=== PATIENT | male | born 1980 | race Two or more races ===

== ENCOUNTER 2021-01-08 08:36 | Outpatient (REF) | payer OTHER, SELFPAY ==
--- NOTE | ~2021-01-08 | XR_ITS ---
EXAMINATION: XR LUMBOSACRAL SPINE CLINICAL INFORMATION: Dorsalgia COMPARISON: None TECHNIQUE: Three views of the lumbosacral spine. FINDINGS: The vertebral bodies and posterior elements are normal. The disc spaces are preserved and the vertebral alignment is normal. The paraspinal soft tissues are normal. XR/XR lumbar spine 2-3V IMPRESSION: Unremarkable examination.
[2021-01-08 10:09] LABS: MANUAL DIFF FLAG NO
[2021-01-08 10:20] LABS: Basophils Percent Auto 0.6 % (0-2); Eosinophils Absolute Auto 0.7 X10*3/uL (0.0-0.4); Eosinophils Percent Auto 9.8 % (0-4); Hematocrit 46.1 % (42-52); Hemoglobin 15.8 g/dl (14.0-18.0); Imm Gran Abs Auto 0.03 X10*3/uL (0.00-0.03); Imm Gran Pct Auto 0.4 % (0.0-0.4); Lymphocytes Absolute Auto 2.8 X10*3/uL (1.2-4.9); Lymphocytes Percent Auto 40.8 % (20-40); Mean Corpuscular HGB Conc 34.3 g/dl (31.0-36.0); Mean Corpuscular Volume 84.7 fL (80-98); Mean Platelet Volume 10.5 fL (9.4-12.4); Monocytes Absolute Auto 0.8 X10*3/uL (0.1-1.2); Neutrophils Absolute Auto 2.6 X10*3/uL (2.0-8.3); Neutrophils Percent Auto 37.4 % (45-73); Platelet Count 244 X10*3/uL (160-400); Red Blood Count 5.44 X10*6/uL (4.60-5.80); Red Cell Distribution Width 13.3 % (11.0-16.0); White Blood Count 6.8 X10*3/uL (4.8-10.8)
[2021-01-08 10:37] LABS: Alanine Aminotransferase 83 U/L (0-40); Albumin Level 4.2 g/dL (3.5-5.0); Alkaline Phosphatase 66 U/L (39-117); Anion Gap 12 (12-20); Aspartate Amino Transferase 31 U/L (5-37); Bilirubin Total 0.6 mg/dL (0.0-1.0); Blood Urea Nitrogen 14 mg/dL (9-16); Calcium 9.6 mg/dL (8.4-10.2); Carbon Dioxide 24 mmol/L (22-29); Chloride 106 mmol/L (96-108); Cholesterol 176 mg/dL; Estimated Glomerular Filt Rate > 60; Glucose Fasting 116 mg/dL (60-99); HDL Cholesterol 38 mg/dL; LDL Cholesterol Calculated 116 mg/dl; Potassium 4.4 mmol/L (3.3-5.1); Sodium 138 mmol/L (135-145); Total Protein 7.5 g/dL (6.5-8.0); Triglycerides 114 mg/dL
[2021-01-08 11:00] LABS: TSH reflex Free T4 1.25 uIU/mL (0.32-4.0)
== END 2021-01-08 08:37 | disposition home or self-care (01) ==
LOC: HO.LAB 08:36
PROVIDERS: PCP Nurse Practitioner Family; Visit Provider Nurse Practitioner Family
DX: M54.9 Dorsalgia, unspecified (principal); Z83.49 Family history of other endocrine, nutritional and metabolic diseases
CPT/HCPCS: 36415; 72100; 80053; 80061; 84443; 85025

== ENCOUNTER 2023-02-14 08:14 | Outpatient (REF) | payer OTHER, SELFPAY ==
--- NOTE | ~2023-02-14 | XR_ITS ---
EXAMINATION: XR THORACIC SPINE XR LUMBAR SPINE CLINICAL INFORMATION: Back pain, thoracic spine, low back pain. COMPARISON: 01/08/2021. TECHNIQUE: 3 views of the thoracic spine. 3 views of the lumbar spine. FINDINGS: THORACIC SPINE: Degenerative changes on very limited imaging of the lower cervical spine could be evaluated with dedicated views of the cervical spine. Thoracic vertebral body heights are preserved. Mild multilevel degenerative changes in the thoracic spine with hypertrophic change. LUMBAR SPINE: Mild multilevel lumbar spondylosis. Lumbar disc space heights are preserved. Facet arthritis in the lower lumbar spine. XR/XR lumbar spine 2-3V IMPRESSION: Degenerative changes on very limited imaging of the lower cervical spine could be evaluated with dedicated views of the cervical spine. Mild multilevel degenerative changes in the thoracic spine. Mild multilevel lumbar spondylosis. Facet arthritis in the lower lumbar spine.
--- NOTE | ~2023-02-14 | XR_ITS ---
EXAMINATION: XR THORACIC SPINE XR LUMBAR SPINE CLINICAL INFORMATION: Back pain, thoracic spine, low back pain. COMPARISON: 01/08/2021. TECHNIQUE: 3 views of the thoracic spine. 3 views of the lumbar spine. FINDINGS: THORACIC SPINE: Degenerative changes on very limited imaging of the lower cervical spine could be evaluated with dedicated views of the cervical spine. Thoracic vertebral body heights are preserved. Mild multilevel degenerative changes in the thoracic spine with hypertrophic change. LUMBAR SPINE: Mild multilevel lumbar spondylosis. Lumbar disc space heights are preserved. Facet arthritis in the lower lumbar spine. XR/XR thoracic spine 2V IMPRESSION: Degenerative changes on very limited imaging of the lower cervical spine could be evaluated with dedicated views of the cervical spine. Mild multilevel degenerative changes in the thoracic spine. Mild multilevel lumbar spondylosis. Facet arthritis in the lower lumbar spine.
== END 2023-02-14 08:15 | disposition home or self-care (01) ==
LOC: HO.XRAY 08:14
PROVIDERS: PCP Internal Medicine; Visit Provider Internal Medicine
DX: M54.50 Low back pain, unspecified (principal); M54.6 Pain in thoracic spine
CPT/HCPCS: 72070; 72100